=== PATIENT | male | born 1935 | race Caucasian/White ===

== ENCOUNTER 2019-05-23 06:08 | Day surgery (SDC) | payer OTHER ==
[~2019-05-23] VITALS: Ht 177.8 cm; Wt 77.1 kg
--- NOTE | ~2019-05-23 | H ---
[facility] [place] [address] HISTORY AND PHYSICAL Name: FANG SHIPLEY Room #: DEP [facility]..#: [id number] Admission: 05/23/19 Attend Phys: Luiz Shepard MD Discharge: 05/23/19 Date of : 39 Report #: [id number] THIS REPORT FOR: //name// CC: Dr. 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 PROCEDURE: Bilateral lower lid ectropion repair with right transconjunctival lower lid and cheek lift. SURGEON: Luiz Shepard MD TAX ADVISOR: None. ANESTHESIA: MAC. COMPLICATIONS: None. 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 He presents today for a bilateral lower lid and right-sided cheek procedure in order to attempt to improve his ocular surface milieu and hopefully heal his cornea. Informed consent was obtained to include but not limited to the potential risk for loss of vision, bleeding, infection, failure to improve the problem, and the certain need for future therapy or treatment. DESCRIPTION OF PROCEDURE: The patient was taken to the operating room where 2% Xylocaine with epinephrine mixed with equal parts of 0.75% Marcaine with Wydase was administered to each lower lid and lateral canthus. In addition, the medial canthus on the right side and cheek along with the infratemporal fossa were anesthetized. The patient was subsequently prepped and draped in the usual sterile fashion. Attention was first turned to the left side. A Lavon clamp was used to clamp the left lateral canthus following which a sharp canthotomy and cantholysis was performed. Hemostasis was then re-achieved. A tarsal strip was then prepared [address] [address] HISTORY AND PHYSICAL Name: FANG SHIPLEY Room #: DEP [facility]..#: [id number] Admission: 05/23/19 Attend Phys: Luiz Shepard MD Discharge: 05/23/19 Date of : 39 Report #: [id number] laterally removing the lash bearing portion of the redundant lid margin and the redundant tarsal plate. Hemostasis was once more re-achieved. The tarsal plate was then resuspended from the internal portion of the lateral orbital tubercle with interrupted 5-0 Prolene sutures. The subcutaneous structures and the skin were then closed with interrupted 6-0 plain gut sutures. Attention was then turned to the right side. The right lateral canthus was then clamped with a [place] clamp. A sharp canthotomy and cantholysis was then performed. Hemostasis was then re-achieved. A tarsal strip was then prepared laterally removing the lash bearing portion of the redundant lid margin and the redundant tarsal plate, taking care to ensure that the lid was not going to be over tightened. The right inferior punctum was then dilated with a sharp-tipped punctum dilator. The punctum dilated well. Attention was then turned to the lower lid and cheek lift. A transconjunctival incision was then made below the inferior border of the tarsal plate and carried out sharply into the pre-malar space. The lower lid and cheek tissues were then elevated and resuspended with interrupted mattress 5-0 chromic sutures. The lower lid and cheek lifted well. Attention was then turned to completion of the ectropion repair. The tarsal strip was then secured to the internal portion of the lateral orbital tubercle with interrupted 5-0 Prolene sutures. The subcutaneous structures and the skin were then closed with interrupted 6-0 plain gut sutures. The wounds were then cleaned and dressed with erythromycin ophthalmic ointment. The patient subsequently transported to the recovery area having tolerated the procedure well with no anesthetic or operative complications being noted. By: [id number] Luiz Shepard MD /nt
[~2019-05-23 06:08] MED LIST: DILTIAZEM 24HR120 M1 PO; ELIQUIS5 MG PO; LANOXIN 0.25M0.25 M1 PO; PREDNISONE 20 M20 MG PO; TIROSINT88 MCG PO
[2019-05-23 07:00] VITALS: BP 143/78
== END 2019-05-23 08:10 | disposition home or self-care (01) ==
LOC: OR 06:08 → TBA 06:08 → OR 06:27
DX: H02.105 Unspecified ectropion of left lower eyelid (principal); H02.102 Unspecified ectropion of right lower eyelid; H02.532 Eyelid retraction right lower eyelid; H02.202 Unspecified lagophthalmos right lower eyelid; H16.001 Unspecified corneal ulcer, right eye; I48.91 Unspecified atrial fibrillation; E03.9 Hypothyroidism, unspecified; Z98.890 Other specified postprocedural states; Z79.899 Other long term (current) drug therapy; Z85.828 Personal history of other malignant neoplasm of skin; Z98.41 Cataract extraction status, right eye; Z98.42 Cataract extraction status, left eye; Z79.01 Long term (current) use of anticoagulants
CPT/HCPCS: 50010; 50101; 50386; 50398; 51636; 56527; 56531; 70005